=== PATIENT | male | born 1965 | race Asian ===

== ENCOUNTER 2017-02-07 07:17 | Emergency (ER) | payer MEDICAID ==
[2017-02-07 07:22] VITALS: BP_SYST 123
--- NOTE | 2017-02-07 07:24 | NUR ---
Patient vomited 25mL clear emesis in triage.
--- NOTE | 2017-02-07 07:28 | NUR ---
Placed in room 6 . Placed on hair cutter, blood pressure machine and pulse oximeter. To gown for exam. Side rails up. Report given to [place] ASIF.
--- NOTE | 2017-02-07 07:39 | NUR ---
ER Dr. Jones at bedside examining patient.
--- NOTE | 2017-02-07 07:44 | NUR ---
Pt presents to ED c/o [place] since last night.Pt h/o DM uncompliant.No acute distress noted.
[2017-02-07] MEDS ORDERED: DIPHENHYDRAMINE INJ 50 MG/ML VIAL IVP ONE ×2 (07:45→08:30)
[2017-02-07] MEDS ORDERED: PROCHLORPERAZINE EDISYLATE 10 MG/2 ML VIAL IVP ONE (07:45)
--- NOTE | 2017-02-07 07:48 | NUR ---
BS 153. # 20 gauge angiocath placed to RAC. Use of asceptic technique. Opsite placed over site. Blood return noted. Blood for lab drawn from site. Flushed with 10 cc of normal saline. No evidence of infiltration noted. Patient tolerated well.
[2017-02-07 08:06] LABS: CALCIUM 8.8 mg/dL (8.4-11.0); CREATININE 0.88 mg/dL (0.55-1.30); POTASSIUM 3.6 mmol/L (3.5-5.1)
[2017-02-07 08:08] LABS: BASOPHILS % (AUTO) 0.9 % (0.0-2.0); EOSINOPHILS # (AUTO) 0.4 K/uL (0.0-0.4); EOSINOPHILS % (AUTO) 8.9 % (0.0-4.0); HEMATOCRIT 49.2 % (36-54); HEMOGLOBIN 16.5 g/dL (14.0-18.0); LYMPHOCYTES # (AUTO) 2.3 K/uL (1.0-5.5); LYMPHOCYTES % (AUTO) 50.9 % (20.5-51.5); MEAN CORPUSCULAR HEMOGLOBIN 28 pg (27-31); MEAN CORPUSCULAR HGB CONC 34 % (32-36); MEAN CORPUSCULAR VOLUME 85 fL (79.0-98.0); MONOCYTES # (AUTO) 0.5 K/uL (0.0-1.0); MONOCYTES % (AUTO) 11.1 % (1.7-9.3); NEUTROPHILS # (AUTO) 1.3 K/uL (1.8-7.7); NEUTROPHILS % (AUTO) 28.2 % (40.0-70.0); PLATELET COUNT (AUTO) 207 K/uL (130-430); WHITE BLOOD COUNT (AUTO) 4.5 K/uL (4.8-10.8)
--- NOTE | 2017-02-07 08:10 | NUR ---
Pain remains intolerable. Dr. Jones at bedside for revaluation.
[2017-02-07] MEDS ORDERED: MORPHINE 2 MG/ML INJ. SYRINGE IVP ONE (08:15)
--- NOTE | 2017-02-07 08:17 | NUR ---
Patient is not able to stay still, has the feeling that he has to go. This was discussed with Dr. Jones, patient will recieve addtional Benadryl 25mg IVP.
[2017-02-07 08:23] LABS: ALBUMIN 3.9 g/dL (3.4-4.8); TOTAL BILIRUBIN 0.7 mg/dL (0.0-1.0); TOTAL PROTEIN, SERUM 7.2 g/dL (6.4-8.3)
[2017-02-07] MEDS ORDERED: DIPHENHYDRAMINE INJ 50 MG/ML VIAL ONE (08:24)
--- NOTE | 2017-02-07 08:25 | NUR ---
Patient transported to radiology via gurney, accompanied by rad staff.
[2017-02-07 08:33] LABS: INR 1.1 (0.80-1.20); PROTHROMBIN TIME 11.4 SECS (9.5-12.5)
--- NOTE | 2017-02-07 08:35 | NUR ---
pt returned from rad dept. pt tolerated well.
--- NOTE | 2017-02-07 08:40 | NUR ---
Pain continuing to resolve.
--- NOTE | 2017-02-07 08:45 | NUR ---
Patient is asleep in gurney appears comfortable.
[2017-02-07 09:35] VITALS: BP_SYST 136
--- NOTE | 2017-02-07 09:35 | NUR ---
Patient given written and verbal discharge instructions and verbalizes understanding. ER MD discussed with patient the results and treatment provided. Given copies of tests performed in ER. Patient in stable condition. ID arm band removed. IV catheter removed intact and dressing applied, no active bleeding. Rx of Spring given. Patient educated on pain management and to follow up with PMD. Pain Scale 0. Opportunity for questions provided and answered.
== END 2017-02-07 09:35 | disposition home or self-care (01) ==
LOC: SED 07:17
DX: G43.909 Migraine, unspecified, not intractable, without status migrainosus (principal); E11.9 Type 2 diabetes mellitus without complications; I10 Essential (primary) hypertension
CPT/HCPCS: 36415; 70450; 71010; 80053; 80061; 82962; 83880; 84484; 85025; 85610; 85730; 93005; 96374; 96375; 99285; J0780; J1200; J2270

== ENCOUNTER 2018-07-09 11:18 | Emergency (ER) | payer MEDICAID ==
[~2018-07-09] VITALS: Ht 157.5 cm; Wt 83.5 kg
[2018-07-09 11:23] VITALS: BP_SYST 147
--- NOTE | 2018-07-09 13:24 | NUR ---
Patient to ER bed 4 to gown for evaluation. Side rails up. Report given to [place] ASIF.
--- NOTE | 2018-07-09 13:31 | NUR ---
ER SHANTEL Corrales at bedside examining patient.
--- NOTE | 2018-07-09 13:35 | NUR ---
Pt presents to ED c/o [place] resolved with motrin taken at home. Pt h/o DM
--- NOTE | 2018-07-09 13:39 | NUR ---
Patient given written and verbal discharge instructions and verbalizes understanding. ER MD discussed with patient the results and treatment provided. Patient in stable condition. ID arm band removed. Rx of metformin,motrin given. Patient educated on pain management and to follow up with PMD. Pain Scale 0. Opportunity for questions provided and answered. Medication side effect fact sheet provided.
[2018-07-09 13:50] VITALS: BP_SYST 144
== END 2018-07-09 13:50 | disposition home or self-care (01) ==
LOC: SED 11:18
DX: G44.209 Tension-type headache, unspecified, not intractable (principal); Z76.0 Encounter for issue of repeat prescription; I10 Essential (primary) hypertension; E11.9 Type 2 diabetes mellitus without complications
CPT/HCPCS: 99283

== ENCOUNTER 2021-03-14 19:24 | Emergency (ER) | payer MEDICAID ==
[~2021-03-14] VITALS: Ht 177.8 cm; Wt 80.7 kg
[2021-03-14 19:34] VITALS: BP_SYST 153
[2021-03-14] MEDS ORDERED: DIPH-TET-PERTUS Vaccine 0.5 ML VIAL (ADACEL) I.M. ONE (20:45)
[2021-03-14 20:56] VITALS: BP_SYST 153
== END 2021-03-14 20:56 | disposition home or self-care (01) ==
LOC: SED 19:24
DX: S91.312A Laceration without foreign body, left foot, initial encounter (principal); I10 Essential (primary) hypertension; E11.9 Type 2 diabetes mellitus without complications; W18.39XA Other fall on same level, initial encounter; Y93.89 Activity, other specified; Y92.89 Other specified places as the place of occurrence of the external cause; Y99.8 Other external cause status
CPT/HCPCS: 99283